=== PATIENT | male | born 1935 | race Caucasian/White ===

== ENCOUNTER 2021-05-11 18:45 | Emergency (ER) | payer MEDICARE ==
[~2021-05-11 18:45] MED LIST: ALDACTONE50 MG PO; ASPIRIN EC81 M1 PO; AUGMENTIN 875-1 EACH PO; DICYCLOMINE HCL20 MG PO; FLOMAX0.4 MG PO; LIPITOR20 MG PO; NORCO 5-325 TA1 EACH PO; OXY-IR 5MG5 MG PO; PROTONIX 40MG T40 MG PO; TIZANIDINE HCL4 MG PO
[2021-05-11 21:06] LABS: HCT 36.7 % (42.0-52.0); HGB 12.1 g/dl (13.2-18.0); MCH 33.2 pg (25.0-31.0); MCV 100.8 fL (78.0-100.0); MPV 11.1 fL (6.0-9.5); RBC 3.64 M/uL (4.70-6.00); RDW 14.3 % (11.5-14.0); WBC 3.6 K/uL (4.0-10.5)
[2021-05-11 21:17] LABS: CREATININE 1.39 mg/dL (0.67-1.17); POTASSIUM 4.3 mmol/L (3.5-5.1)
== END 2021-05-12 00:20 | disposition home or self-care (01) ==
LOC: FER 18:45
PROVIDERS: Emergency Medicine
DX: R07.89 Other chest pain (principal); K74.60 Unspecified cirrhosis of liver; E11.9 Type 2 diabetes mellitus without complications; Z88.2 Allergy status to sulfonamides; Z91.041 Radiographic dye allergy status; W17.2XXA Fall into hole, initial encounter; Y92.007 Garden or yard of unspecified non-institutional (private) residence as the place of occurrence of the external cause
CPT/HCPCS: 36415; 70450; 71101; 71250; 80048; J7030